=== PATIENT | female | born 1985 | race Caucasian/White ===

== ENCOUNTER → 2020-01-27 | Outpatient (CLI) | payer OTHER ==
[2014-12-15 21:08] VITALS: BP 126/57
--- NOTE | 2020-01-27 12:44 | CARD ---
MR#: [id number] Date of Study: 01/27/2020 Ordering Physician: KIET ROJAS, Referring Physician: KIET ROJAS Tech: Susan Mullins RDCS APPROVED REPORT EXAM: Two-dimensional and M-mode echocardiogram with Doppler and color Doppler. Other Information Quality : Good INDICATION Tachycardia 2D DIMENSIONS RVDd2.5 (2.9-3.5cm)Left Atrium(2D)3.0 (1.6-4.0cm) IVSd0.9 (0.7-1.1cm)Aortic Root(2D)2.9 (2.0-3.7cm) LVDd4.9 (3.9-5.9cm)LVOT Diameter2.1 (1.8-2.4cm) PWd0.9 (0.7-1.1cm)LVDs3.2 (2.5-4.0cm) FS (%) 35.8 %SV74.4 ml LVEF(%)65.1 (>50%) Aortic Valve AoV Peak Nelson.109.8cm/sAoV VTI21.0cm AO Peak GR.4.8mmHgLVOT VTI 18.73cm AO Mean GR.3mmHgAVA (VTI)3.00cm2 Mitral Valve MV E Ujbntfln89.4cm/sMV DECEL MIOS637vm MV A Jllojhvl23.6cm/sE/A Ratio1.6 TDI Lateral E' P. V13.00cm/sMedial E' P. V11.97cm/s E/Lateral E'4.4E/Medial E'4.8 LEFT VENTRICLE The left ventricle is normal size. There is normal left ventricular wall thickness. The left ventricu lar systolic function is normal. The Ejection Fraction is 55-60%. There is normal LV segmental wall m otion. The left ventricular diastolic function and filling is normal for age. RIGHT VENTRICLE The right ventricle is normal size. The right ventricular systolic function is normal. ATRIA The left atrium size is normal. The right atrium size is normal. The interatrial septum is intact wit h no evidence for an atrial septal defect or patent foramen ovale as noted on 2-D or Doppler imaging. AORTIC VALVE The aortic valve is normal in structure and function. Doppler and Color Flow revealed no significant aortic regurgitation. There is no significant aortic valvular stenosis. MITRAL VALVE The mitral valve is normal in structure and function. There is no evidence of mitral valve prolapse. There is no mitral valve stenosis. Doppler and Color Flow revealed no mitral valve regurgitation note d. TRICUSPID VALVE The tricuspid valve is normal in structure and function. Doppler and Color Flow revealed no tricuspid valve regurgitation noted. There is no tricuspid valve stenosis. PULMONIC VALVE The pulmonary valve is normal in structure and function. Doppler and Color Flow revealed trace pulmon ic valvular regurgitation. There is no pulmonic valvular stenosis. GREAT VESSELS The aortic root is normal in size. The ascending aorta is normal in size. The IVC is normal in size a nd collapses >50% with inspiration. PERICARDIAL EFFUSION There is no evidence of significant pericardial effusion. Critical Notification Critical Value: No <Conclusion> The left ventricular systolic function is normal. The Ejection Fraction is 55-60%. There is normal LV segmental wall motion. There is no evidence of significant pericardial effusion. Signed by : Kiet Rojas, Electronically Approved : 01/27/2020 12:44:14
== END ==
LOC: ECHO 08:51
PROVIDERS: ATTEND Internal Medicine Cardiovascular Disease
DX: R00.0 Tachycardia, unspecified (principal)
CPT/HCPCS: 93306

== ENCOUNTER → 2020-03-07 | Outpatient (CLI) | payer OTHER ==
[2014-12-15 21:08] VITALS: BP 126/57
--- NOTE | 2020-03-07 13:27 | RAD ---
MR#: [id number] Date of Study: 03/07/2020 Ordering Physician: KIET CRUZ Referring Physician: RENE CHASE Tech: RT Lindsay (R) (N) APPROVED REPORT Test Type: Exercise Stress Nurse/Tech: Domonique Flower R.N. Test Indications: chest pain. post Covid Cardiac History: Family history Medications: See Electronic Medical Record Medical History: See Electronic Medical Record Resting ECG: NSR Resting Heart Rate: 62 bpm Resting Blood Pressure: 108/60mmHg Pretest Chest Pain: No chest pain Nurse/Tech Notes S1S2. lungs sound clear Consent: The procedure was explained to the patient in lay terms. Informed consent was witnessed. Andrea eout was entered into [employer]. History and Stress Test performed by Domonique Flower R.N. Stress Symptoms Dyspnea POST EXERCISE Reason for Termination: Reached target heart rate Target HR: 158 Max HR: 169 bpm Exercise duration: 9 mi. 30 sec min:sec, 4 Stage Max Blood Pressure: 123/68mmHg Blood Pressure response to exercise: Normal blood pressure response during stress. Chest Pain: No. Arrhythmia: No. ST Change: No. INTERPRETATION Stress EKG Conclusion: Baseline EKG showed sinus rhythm with incomplete RBBB. No ischemic changes at peak stress. No arrhythmias. Imaging Protocol IMAGE PROTOCOL: Rest Tc-99m/stress Tc-99m 1 day Rest: Stress: Viability: Radiopharm.Tc99m BgwvzoqsfOe07c Sestamibi Puhr09mBl 31mCi Duration 13min. 13min. Img Date 03/07/2020 03/07/2020 Inj-Img Iqak32hta. 60min. Rest Admin Site:IV - Right HandAdministrator:RT Lindsay (Chastity)(N) Stress Admin Site: IV - Right HandAdministrator: RT Jamaal (Chastity)(N) STRESS DATA End Diast. Vol.112.0mlLVEDV index BSA56.0ml End Syst. Vol.35.0mlLVESV index BSA17.0ml Myocardial Xslq585.0gEject. Ahlondfp39.0% Stress Scores Regional WT0.00Summed WT1.00 Regional WM0.00Summed WM0.00 Study quality was good. Left Ventricular size was Normal at Rest and Stress. Lung uptake was . Left Ventricular ejection fraction is 69%. The rest and stress images show normal perfusion, normal contraction and thickening. LV Perf. Quant 17 Seg. SSS0.00 17 Seg. SRS2.00 17 Seg. SDS0.00 Stress Defect Extent (% LAD)0.00Rest Defect Extent (% LAD)7.50Rev. Defect Extent (% LAD)0.00 Stress Defect Extent (% LCX) 0.00Rest Defect Extent (% LCX)7.50Rev. Defect Extent (% LCX)0.00 Stress Defect Extent (% RCA)0.00Rest Defect Extent (% RCA)0.00Rev. Defect Extent (% RCA)0.00 Stress Defect Extent (% OSKAR)0.00Rest Defect Extent (% OSKAR)4.30Rev. Defect Extent (% OSKAR)0.00 Conclusion 1. Treadmill exercise cardioisotope stress test did not show any evidence of ischemia or infarct. 2. Normal left ventricular systolic function with ejection fraction calculated at 69%. 3. Patient had good activity tolerance. Low risk for cardiac events. Signed by : Kiet Cruz, Electronically Approved : 03/07/2020 13:27:22
== END | disposition home or self-care (01) ==
LOC: NM 09:39
PROVIDERS: ATTEND Internal Medicine Cardiovascular Disease
DX: R07.89 Other chest pain (principal)
CPT/HCPCS: 78452; 93017; A9500

== ENCOUNTER → 2021-07-04 | Outpatient (CLI) | payer OTHER ==
[2014-12-15 21:08] VITALS: BP 126/57
--- NOTE | 2021-07-04 11:03 | KCIC ---
Exam Date: 07/04/2021 8:45 AM MRI RIGHT LOWER EXTREMITY JOINT WITHOUT Indication: Reason: RIGHT KNEE PAIN / Spl. Instructions: / History: Rt knee locks and pops, swelling , anterior knee pain, chronic. Worse 11/21.. TECHNIQUE: Routine multiplanar MR imaging of the knee was performed without contrast. FINDINGS: The medial and lateral menisci are intact and within normal limits for age. The anterior cruciate ligament, posterior cruciate ligament, medial collateral ligament, and lateral collateral ligament complex are intact. Patellofemoral extensor mechanism and popliteus tendon are w ithin normal limits. Multifocal full and partial thickness chondral defects are seen in the medial compartment with mild s ubchondral degenerative marrow signal. Partial thickness chondral defects are seen in the patellofem oral and lateral compartments. Bone marrow demonstrates benign signal on all sequences. No acute fracture is seen. Small tricompar tment osteophytes are noted. There is a small joint effusion. There is no popliteal cyst. IMPRESSION: Degenerative changes as described, with multifocal full-thickness chondral loss in the medial compart ment. Intact menisci and ligaments. Small joint effusion noted. Electronically signed by: Jose L Hodgson MD (07/04/2021 11:01 AM) [id number]
== END ==
LOC: KCIC MRI 08:25
PROVIDERS: ATTEND Nurse Practitioner
DX: M25.461 Effusion, right knee (principal); M25.761 Osteophyte, right knee; M25.861 Other specified joint disorders, right knee
CPT/HCPCS: 73721

== ENCOUNTER 2021-10-27 06:07 | Day surgery (SDC) | payer OTHER ==
[~2021-10-27] VITALS: Ht 172.7 cm; Wt 97.7 kg
[~2021-10-27 06:07] MED LIST: HYDROmorphone 2 MG/ML INJ. IVP PRN; IV RINGERS,LACTATED 1000ML 1,000 ML IV SCH; MORPHINE SULFATE 2 MG/ML INJ. IVP PRN; PROCHLORPERAZINE 10 MG/2 ML VIAL. IVP PRN; fentaNYL PF VIAL 100 MCG/2 ML VIAL IVP PRN
[2021-10-27] MEDS ORDERED: DEXT10TA23 PO (06:29)
[2021-10-27] MEDS ORDERED: SERT100T PO (06:29)
[2021-10-27] MEDS ORDERED: HYDR25TA PO (06:29)
[2021-10-27] MEDS ORDERED: ALBU2.5V8 IH (06:29)
[2021-10-27] MEDS ORDERED: BUPR150T8 PO (06:29)
[2021-10-27] MEDS ORDERED: LORA10CA PO (06:29)
[2021-10-27 06:31] VITALS: BP 108/61
[2021-10-27] MEDS ORDERED: PROPOFOL 10 MG/ML (20ML) VIAL. IV ONE (06:33)
[2021-10-27] MEDS ORDERED: KETOROLAC 30 MG/ML VIAL. ONE (06:34)
[2021-10-27] MEDS ORDERED: ONDANSETRON PF 4 MG/2 ML VIAL. ONE ×2 (06:34→09:55)
[2021-10-27] MEDS ORDERED: DEXAMETHASONE SOD PHOS 4 MG/ML VIAL ONE (06:34)
[2021-10-27] MEDS ORDERED: HYDROmorphone 2 MG/ML INJ. ONE (06:35)
[2021-10-27] MEDS ORDERED: LIDOCAINE 2% PF 5 ML VIAL. ONE (06:52)
[2021-10-27] MEDS ORDERED: MIDAZOLAM HCL/PF 2 MG/2 ML VIAL. ONE (06:53)
[2021-10-27] MEDS ORDERED: BUPIVACAINE-EPI 0.25%-1:200000 MPF 30 ML VIAL. ONE (06:58)
[2021-10-27] MEDS ORDERED: SCOPOLAMINE 1.5MG PATCH. TD ONE (07:15)
[2021-10-27] MEDS ORDERED: CLINDAMYCIN 900MG PREMIX 50 ML IV ONE (07:15)
[2021-10-27] MEDS ORDERED: ASPI325T8 PO (07:28)
[2021-10-27] MEDS ORDERED: DOCU-109 PO (07:28)
[2021-10-27] MEDS ORDERED: OXYC5TAB88 PO (07:28)
[2021-10-27] MEDS ORDERED: ONDA4TAB12 PO (07:28)
--- NOTE | 2021-10-27 07:31 | DISCH ---
DISCHARGE INSTRUCTIONS Condition on Discharge Condition on Discharge: Stable Activity After Discharge Activity Instructions for Disc: Activity as tolerated, Avoid exertion Bathing Instructions: Shower-keep dressing dry, No Tub Bath until see Lifting Instructions after Dis: No heavy lifting Driving Instructions after Dis: Do not drive (While taking narcotic pain medication) Weight Bearing Status after Di: Non weight bearing Diet after Discharge Diet after Discharge: Regular Wound Incision Care Wound/Incision Care: Ice to area for comfort, Keep wound/cast CDI, Keep wound elevated Contacting the DRJayna after DC Call your doctor for: If your condition worsens Follow-Up Follow up with: Orthopedic clinic in 1 to 2 weeks [phone]. Treatment/Equipment after DC Adaptive Equipment Issued: CHELSEA Quintero October 27, 2021 07:31
[2021-10-27] MEDS ORDERED: PHENYLEPHRINE in 0.9% NACL PF 1 MG/10 ML SYRINGE. IV ONE (08:06)
--- NOTE | 2021-10-27 08:08 | HP ---
DATE OF SERVICE: 10/27/2021 ADMIT DATE: 10/27/2021 REASON FOR HOSPITAL VISIT: Today, right knee pain. BRIEF HISTORY: The patient is a 35-year-old female, here today with complaints of right knee pain, which has been unremitting. She is a very active individual who plays softball, recreationally. She continues to have right knee pain and points to the medial aspect of the knee. This has been caused increasing amounts of pain with activities of daily living. 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 Anti-inflammatories, modification of activities, etc. have not significantly helped her symptoms at this point. PAST MEDICAL HISTORY: Remarkable for vitamin B12 deficiency, asthma, pulmonary embolism, ADHD, lumbago, insomnia, anxiety and depression. PAST SURGICAL HISTORY: Unremarkable. HOSPITALIZATIONS: None listed. FAMILY HISTORY: Left bundle branch block and CHF, thyroid disease as well as diabetes. Her father is remarkable for arrhythmia as well as prostate cancer. Brother has testicular cancer and sarcoidosis. SOCIAL HISTORY: The patient has never been any user of tobacco or alcohol at this point. MEDICATIONS: Include Adderall as well as hydroxyzine, Wellbutrin, Claritin as needed, Zoloft, and aspirin 81 mg per day. MEDICATION ALLERGIES: ROCEPHIN. PHYSICAL EXAMINATION: VITAL SIGNS: She is 68 inches tall, 200 pounds. GENERAL: She is alert and oriented x 3. HEENT: Within normal limits. LUNGS: [place] are clear to auscultation. ABDOMEN: Soft and nontender. EXTREMITIES: Her examination of her knee reveals there to be no significant effusion today. Range of motion is 0-125 degrees of flexion. No instability in the varus, valgus or AP plane, but there is a positive Apley's test in the medial compartment as well as uncomfortable examination past 90 degrees of flexion. Negative Apley's testing to the lateral compartment, no other significant findings at this point. No atrophy of musculature. Distal neurovascular status is fully intact. IMPRESSION: Chondral lesion, medial femoral condyle and sulcus, right knee. PLAN: At this time, we have talked with her about arthroscopy with chondral debridement, possible OATS procedure. We have gone over the risks, complications as well as benefits and expectations of surgery, postoperative protocol and followup will proceed as soon as Anesthesia evaluates her this morning. SHANDA/FRANCESCO STYLES: Jessica TID: [id number]
--- NOTE | 2021-10-27 08:17 | PDOC4 ---
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 Procedure Performed: Right knee arthroscopy with microfracture medial femoral condyle Surgeon: Raffaele Anesthesia Type: General Blood Loss: 30 cc Specimans Obtained: None Findings: See dictation Complications: Patient taken operative suite given general acetic right lower extremities placed in a knee gibbs prepped and draped in a sterile fashion after exsanguination tourniquet was inflated instead of the inferomedial inferolateral portals were established knee was insufflated with saline visualization the patellofemoral joint noted of the patella be completely grade 3 and grade 4 grade 4 along the medial facet as well as the middle facet at this point. This was unstable therefore is debrided back to stable tissue the femoral sulcus and the entire area from approximately 10 degrees of flexion all the way to 120 degrees of flexion was devoid of cartilage grade 3 and grade 4 large area of grade 4 throughout the entire area but it did track appropriately. This was debrided back to stable tissue as well as the patella at this point. No loose bodies are noted in the medial lateral gutters but upon entering the medial compartment there is noted be couple loose bodies were removed approximately 2 to 3 mm in length each. After these was removed it was noted that there was a significant deficit from 90 degrees of flexion all the way back to 130 degrees of flexion this was noted to be in the with approximately 8 mm in length approximately 16 to 20 mm at least. This was debrided back to stable tissue. This was not lesion which could be appropriately fixed with oats procedure t herefore this was microfractured along this entire area. The meniscus was intact and stable to probing ACL the PCL were intact and stable to probing the lateral compartment is also intact and stable to probing on the meniscus as well as chondral surfaces which were completely intact and stable. This is then thoroughly irrigated reinspected no new problems are noted the patient was in had all instruments removed after this was suctioned dry locals in the placement of the portal sites the wounds were reapproximated sterile dressing was applied patient was taken from the operative bed to the postoperative bed taken to the PACU in stable condition MICHAEL GERMAN Jr. DO October 27, 2021 08:17
[2021-10-27] MEDS ORDERED: oxyCODONE IR 5 MG TABLET PO ONE (08:45)
[2021-10-27] MEDS ORDERED: oxyCODONE IR 5 MG TABLET ONE (08:51)
[2021-10-27 09:04] VITALS: BP 102/52
[2021-10-27] MEDS ORDERED: SEVOFLURANE 31 TO 60 MINUTES. IH ONE (09:25)
[2021-10-27] MEDS ORDERED: ONDANSETRON PF 4 MG/2 ML VIAL. IVP ONE (10:00)
== END 2021-10-27 11:00 | disposition home or self-care (01) ==
LOC: SURG 06:07
PROVIDERS: ATTEND Orthopaedic Surgery
DX: M17.11 Unilateral primary osteoarthritis, right knee (principal); M95.8 Other specified acquired deformities of musculoskeletal system; J45.909 Unspecified asthma, uncomplicated; F41.9 Anxiety disorder, unspecified; F32.9 Major depressive disorder, single episode, unspecified; Z79.899 Other long term (current) drug therapy; Z98.890 Other specified postprocedural states
CPT/HCPCS: 29879; 81025; 97116; 97161; A4930; J1100; J1170; J1885; J2250; J2370; J2405; J2704; J3490; A4223